=== PATIENT | male | born 1970 | race Caucasian/White ===

== ENCOUNTER 2017-06-10 10:56 | Emergency (ER) | payer OTHER ==
[2017-06-10] MEDS ORDERED: ASPIRIN 81 MG TABLET, CHEWABLE PO ONE (11:06)
--- NOTE | 2017-06-10 11:48 | ER Document Report ---
ED Medical Screen (RME) - General Chief Complaint: Chest Pain Stated Complaint: CHEST PAIN Time Seen by Provider: 06/10/17 11:47 Notes: pt with cp/sob worse with exertion since yesterday. no travel/surgeries/prev hx. no leg swelling. no hx lung/heart pathology. nml stress about one yr ago TRAVEL OUTSIDE OF THE [place] IN LAST 30 DAYS: No - Related Data Allergies/Adverse Reactions: No Known Allergies Allergy (Unverified 06/10/17 10:57) Past Medical History - Social History Frequency of alcohol use: daily beer and wine Drug Abuse: None Renal/ Medical History: Denies: Hx Peritoneal Dialysis Physical Exam - Vital signs Vitals: Temp Pulse Resp BP Pulse Ox 99.0 F 87 20 111/71 99 06/10/17 11:10 06/10/17 11:10 06/10/17 11:10 06/10/17 11:10 06/10/17 11:10 Course - Vital Signs Vital signs: Temp Pulse Resp BP Pulse Ox 99.0 F 87 20 111/71 99 06/10/17 11:10 06/10/17 11:10 06/10/17 11:10 06/10/17 11:10 06/10/17 11:10
[2017-06-10 12:42] LABS: ABSOLUTE EOSINOPHILS # (AUTO) 0.1 10^3/uL (0.0-0.6); ABSOLUTE LYMPHOCYTES (AUTO) 2.5 10^3/uL (0.5-4.7); ABSOLUTE MONOCYTES (AUTO) 0.5 10^3/uL (0.1-1.4); ABSOLUTE NEUT (AUTO) 3.6 10^3/uL (1.7-8.2); BASOPHILS % (AUTO) 0.6 % (0-2); HEMATOCRIT 42.6 % (37.9-51.0); HEMOGLOBIN 14.6 g/dL (13.5-17.0); LYMPHOCYTES % (AUTO) 37.1 % (13-45); MEAN CORPUSCULAR HEMOGLOBIN 30.4 pg (27.0-33.4); MEAN CORPUSCULAR HGB CONC 34.3 g/dL (32.0-36.0); MEAN CORPUSCULAR VOLUME 89 fl (80-97); MONOCYTES % (AUTO) 7.8 % (3-13); PLATELET COUNT 279 10^3/uL (150-450); RED BLOOD COUNT 4.82 10^6/uL (4.35-5.55); RED CELL DISTRIBUTION WIDTH 13.1 % (11.5-14.0); SEGMENTED NEUTROPHILS % (AUTO) 53.5 % (42-78); TOTAL CELLS COUNTED % (AUTO) 100 %; WHITE BLOOD COUNT 6.8 10^3/uL (4.0-10.5)
[2017-06-10 12:45] LABS: VENOUS BLOOD BASE EXCESS 3.2 mmol/L; VENOUS BLOOD HCO3 30.4 mmol/L (20-32); VENOUS BLOOD PH 7.35 (7.30-7.42)
[2017-06-10 12:46] LABS: INTERNATIONAL RATION (INR) 0.92
[2017-06-10 12:47] LABS: PARTIAL THROMBOPLASTIN TIME 28.6 SEC (23.5-35.8)
[2017-06-10 13:04] LABS: ALANINE AMINOTRANSFERASE 35 U/L (21-72); ALBUMIN 4.4 g/dL (3.5-5.0); ALKALINE PHOSPHATASE 66 U/L (38-126); ANION GAP 13 (5-19); ASPARTATE AMINO TRANSFERASE 24 U/L (17-59); BILIRUBIN,DIRECT 0.4 mg/dL (0.0-0.4); BILIRUBIN,TOTAL 0.5 mg/dL (0.2-1.3); BLOOD UREA NITROGEN 12 mg/dL (7-20); CALCIUM 9.5 mg/dL (8.4-10.2); CARBON DIOXIDE 26 mmol/L (22-30); CHLORIDE 102 mmol/L (98-107); CREATINE KINASE 129 U/L (55-170); GLUCOSE 73 mg/dL (75-110); LIPASE 259.6 U/L (23-300); MAGNESIUM 1.8 mg/dL (1.6-2.3); POTASSIUM 4.4 mmol/L (3.6-5.0); SODIUM 140.6 mmol/L (137-145); TOTAL PROTEIN 6.6 g/dL (6.3-8.2)
[2017-06-10 13:16] LABS: CREATINE KINASE MB 4.25 ng/mL (<4.55)
[2017-06-10 13:19] LABS: TROPONIN I 0.552 ng/mL
--- NOTE | 2017-06-10 13:32 | EKG REPORT ---
SEVERITY:- NORMAL ECG - SINUS RHYTHM : Confirmed by: Matty Coreas MD 10-Jun-2017 13:31:02
--- NOTE | 2017-06-10 13:48 | RADIOLOGY REPORT (SQ) ---
EXAM DESCRIPTION: CTA CHEST COMPLETED DATE/TIME: 06/10/2017 1:36 pm REASON FOR STUDY: hypoxia in pcp office l cp COMPARISON: None. TECHNIQUE: CT scan of the chest performed using helical scanning technique with dynamic intravenous contrast injection. Images reviewed with lung, soft tissue and bone windows. Reconstructed coronal and sagittal MPR images reviewed. Additional 3 dimensional post-processing performed to develop Maximal Intensity Projection images (HI P). All images stored on PACS. All CT scanners at this facility use dose modulation, iterative reconstruction, and/or weight based d osing when appropriate to reduce radiation dose to as low as reasonably achievable (ALARA). [facility]: Dose Right [facility]: CareDose [facility]: Dose Right [facility]: Teradose 4D [facility]: [employer] CONTRAST TYPE AND DOSE: contrast/concentration: Isovue 370.00 mg/ml; Total Contrast Delivered: 82.0 ml; Total Saline Delivered: 82.1 ml Contrast bolus optimized for the pulmonary arteries. Not diagnostic for the aorta. RENAL FUNCTION: Creatinine 1 RADIATION DOSE: CT Rad equipment meets quality standard of care and radiation dose reduction techniq ues were employed. CTDIvol: 16.5 - 31.5 mGy. DLP: 1223 mGy-cm. . LIMITATIONS: None. FINDINGS: LUNGS AND PLEURA: Abnormal air space density in the inferior aspect of the right upper lob e posteriorly consistent with mild pneumonia. Remainder lungs are clear. No effusions. AORTA AND GREAT VESSELS: No aneurysm. Contrast bolus not optimized for the aorta. HEART: No pericardial effusion. No significant coronary artery calcifications. PULMONARY ARTERIES: No emboli visualized in the main pulmonary arteries or the segmental branches. HILAR AND MEDIASTINAL STRUCTURES: No identified masses or abnormal nodes. HARDWARE: None in the chest. UPPER ABDOMEN: No significant findings. Limited exam. THYROID AND OTHER SOFT TISSUES: No masses. No adenopathy. BONES: No acute or significant finding. 3D MIPS: Confirm above findings. OTHER: No other significant finding. IMPRESSION: 1. No evidence of pulmonary embolus. 2. Mild right upper lobe pneumonia. COMMENT: Quality ID # [id number]: Final reports with documentation of one or more dose reduction techniques (e.g., Automated exposure control, adjustment of the mA and/or kV according to patient size, use of iterative reconstruction technique) TECHNICAL DOCUMENTATION: JOB ID: [id number]- All Rights Reserved
[2017-06-10] MEDS ORDERED: NORMAL SALINE 1000 ML 1,000 ML IV ONE ×2 (14:06)
[2017-06-10] MEDS ORDERED: ATORVASTATIN CALCIUM 40 MG TABLET PO ONE (14:19)
[2017-06-10] MEDS ORDERED: ENOXAPARIN SODIUM INJ 120 MG/0.8 ML DISP.SYRIN SUBCUT SCH (14:30)
--- NOTE | 2017-06-10 16:11 | ER Document Report ---
ED General - General Chief Complaint: Chest Pain Stated Complaint: CHEST PAIN Time Seen by Provider: 06/10/17 11:47 TRAVEL OUTSIDE OF THE [place] IN LAST 30 DAYS: No - HPI Patient complains to provider of: Chest pain shortness of breath hypoxia Notes: Patient coming in for evaluation of chest pain shortness of breath and hypoxia. Patient states symptoms ongoing for the last few weeks. States mostly shortness of breath and chest pain whenever he is ambulating working. Patient has a history of hyperlipidemia and hypertension. Patient was seen in his PCPs office and sent to the ER due to a hypoxic reading on pulse oximetry while ambulating in the patient's PCPs office. I did receive a phone call from PCP states had a stress test that was negative approximately 1 year ago possibility of some slight areas of reversible ischemia at that time. By my evaluation patient resting comfortably. States chest pain mostly on the left side sometimes does go into his back. Patient denies any fevers chills nausea vomiting diarrhea denies smoking denies any recent travel. Patient currently chest pain-free - Related Data Allergies/Adverse Reactions: No Known Allergies Allergy (Unverified 06/10/17 10:57) Past Medical History - Social History Smoking Status: Never Smoker Frequency of alcohol use: daily beer and wine Drug Abuse: None Family History: Reviewed & Not Pertinent Patient has suicidal ideation: No Patient has homicidal ideation: No Renal/ Medical History: Denies: Hx Peritoneal Dialysis Review of Systems - Review of Systems Constitutional: No symptoms reported EENT: No symptoms reported Cardiovascular: Chest pain, Dyspnea, Syncope Respiratory: No symptoms reported Gastrointestinal: No symptoms reported Genitourinary: No symptoms reported Male Genitourinary: No symptoms reported Musculoskeletal: No symptoms reported Skin: No symptoms reported Hematologic/Lymphatic: No symptoms reported Neurological/Psychological: No symptoms reported -: Yes All other systems reviewed and negative Physical Exam - Vital signs Vitals: Temp Pulse Resp BP Pulse Ox 99.0 F 87 20 111/71 99 06/10/17 11:10 06/10/17 11:10 06/10/17 11:10 06/10/17 11:10 06/10/17 11:10 Interpretation: Normal - General General appearance: Appears well, Alert - HEENT Head: Normocephalic, Atraumatic Eyes: Normal Pupils: PERRL - Respiratory Respiratory status: No respiratory distress Chest status: Nontender Breath sounds: Normal Chest palpation: Normal - Cardiovascular Rhythm: Regular Heart sounds: Normal auscultation Murmur: No - Abdominal Inspection: Normal, Obese Distension: No distension Bowel sounds: Normal Tenderness: Nontender Organomegaly: No organomegaly - Back Back: Normal, Nontender - Extremities General upper extremity: Normal inspection, Nontender, Normal color, Normal ROM , Normal temperature General lower extremity: Normal inspection, Nontender, Normal color, Normal ROM , Normal temperature, Normal weight bearing. No: Toyin's sign - Neurological Neuro grossly intact: Yes Cognition: Normal Orientation: AAOx4 [place] Coma Scale Eye Opening: Spontaneous [place] Coma Scale Verbal: Oriented [place] Coma Scale Motor: Obeys Commands [place] Coma Scale Total: 15 Speech: Normal Motor strength normal: LUE, RUE, LLE, RLE Sensory: Normal - Psychological Associated symptoms: Normal affect, Normal mood - Skin Skin Temperature: Warm Skin Moisture: Dry Skin Color: Normal Course - Re-evaluation Re-evalutation: 06/10/17 16:06 Patient seen in for evaluation of hypoxia chest pain with exertion. PCP request and CTA which was negative. This revealed possible right-sided pneumonia however patient has no fevers chills nausea vomiting has no cough. Has no elevation of white count do not suspect the patient has pneumonia at this time. Initial EKG showed normal sinus rhythm. Troponin was elevated at 0.5. He did repeat the patient's EKG was now shows T-wave inversions V2-V4. Concern for underlying in STEMI with patient exertional chest pain .. angina. I initially did call [facility] spoke to hospitalist Dr. Tovar who requested I speak to cardiology. Discussed with water purifier business area director Dr. Godoy unfortunate this time [facility] is at capacity and unable have a bed available until next [address] Godoy did agree to schedule the patient for cath in the morning. Requesting a heparin drip. I did also speak with Dr. Meredith of [facility]. Did set patient's transfer. Dr. Meredith agrees with [facility] at this time. Did give the patient his atorvastatin and also patient did receive aspirin here. At this time patient's blood pressure has been ranging between 90-100 systolically. Did give the patient a fluid bolus. She did take his blood pressure medication earlier in the morning. Does have a slight elevation in his BNP more likely related to underlying in STEMI. Currently patient has no issues no chest pain. Currently waiting on transport to [facility]. - Vital Signs Vital signs: Temp Pulse Resp BP Pulse Ox 99.0 F 87 24 H 106/65 94 06/10/17 11:10 06/10/17 11:10 06/10/17 21:27 06/10/17 21:27 06/10/17 21:27 - Laboratory Result Diagrams: 06/10/17 12:18 06/10/17 12:18 Laboratory results interpreted by me: 06/10/17 06/10/17 12:18 12:18 Glucose 73 L NT-Pro-B Natriuret Pep 1280 H Discharge - Discharge Clinical Impression: NSTEMI (non-ST elevated myocardial infarction) Condition: Stable Disposition: [facility] Referrals: CARINA RAMIRES MD [Primary Care Provider] - Follow up as needed
--- NOTE | 2017-06-10 18:09 | EKG REPORT ---
SEVERITY:- ABNORMAL ECG - SINUS RHYTHM ABNORMAL T, CONSIDER ISCHEMIA, ANT-LAT LEADS BORDERLINE PROLONGED QT INTERVAL : Confirmed by: Matty Coreas MD 10-Jun-2017 18:09:07
[2017-06-10 20:02] VITALS: BP 106/65
--- NOTE | 2017-06-10 21:35 | ER Document Report ---
Doctor's Note Notes: 06/10/17 21:35 Patient reevaluated, he is stable at this time, transfer is here to take the patient, he has no complaints
== END 2017-06-10 21:45 | disposition short-term general hospital (02) ==
LOC: ER 10:56
DX: R07.9 Chest pain, unspecified (principal); R06.02 Shortness of breath; R09.02 Hypoxemia; I10 Essential (primary) hypertension; E78.5 Hyperlipidemia, unspecified
CPT/HCPCS: 93005; 99285; 96372; 96360; 96361; 36415; 82553; 82550; 83690; 83735; 85025; 85610; 85730; 80053; 84484; 82803; 83880; 71275; 93010; J1650; J7030

== ENCOUNTER 2017-07-20 13:22 | Emergency (ER) | payer OTHER ==
[2017-07-20] MEDS ORDERED: ASPIRIN 81 MG TABLET, CHEWABLE PO ONE (14:07)
--- NOTE | 2017-07-20 14:09 | ER Document Report ---
ED Cardiac - General Chief Complaint: Chest Pain Stated Complaint: CHEST PAIN Time Seen by Provider: 07/20/17 13:41 Notes: 46-year-old male to the emergency department via EMS for evaluation of chest pain. Patient was seen here approximately 5 weeks ago. Diagnosed with a non- ST segment elevation [place]. Transferred to [facility] in [place]. There he had a cardiac catheterization done which showed no obvious blockage. Followed by energy conservation specialist here in town, Dr. Chapman. Patient states that over the last couple days he has had vomiting and diarrhea. Today he developed chest pain and shortness of breath. Has any fever, chills or sweats at this time. States that he took a nitro 2 at home and received another one in route. Chest pain is improved at this time. TRAVEL OUTSIDE OF THE [place] IN LAST 30 DAYS: No - HPI Patient complains to provider of: Chest pain - Related Data Allergies/Adverse Reactions: No Known Allergies Allergy (Unverified 06/10/17 10:57) Past Medical History - General Information source: Patient - Social History Smoking Status: Never Smoker Frequency of alcohol use: None Drug Abuse: None Lives with: Spouse/Significant other Family History: Reviewed & Not Pertinent - Past Medical History Cardiac Medical History: Reports: Hx Hypertension Pulmonary Medical History: Reports: None EENT Medical History: Reports: None Neurological Medical History: Reports: None Endocrine Medical History: Reports: None Renal/ Medical History: Denies: Hx Peritoneal Dialysis Malignancy Medical History: Reports None GI Medical History: Reports: None Musculoskeltal Medical History: Reports None Skin Medical History: Reports None Psychiatric Medical History: Reports: None Review of Systems - Review of Systems Constitutional: Weakness. denies: Fever, Malaise EENT: No symptoms reported Cardiovascular: Chest pain Respiratory: Short of breath. denies: Cough, Hurts to breathe, Wheezing Gastrointestinal: Diarrhea, Nausea, Vomiting Genitourinary: No symptoms reported Male Genitourinary: No symptoms reported Musculoskeletal: No symptoms reported Skin: No symptoms reported Hematologic/Lymphatic: No symptoms reported Neurological/Psychological: No symptoms reported Physical Exam - Vital signs Vitals: Temp Resp Pulse Ox 97.5 F 22 H 96 07/20/17 13:39 07/20/17 13:39 07/20/17 13:39 Interpretation: Normal - General General appearance: Appears well, Alert - HEENT Head: Normocephalic, Atraumatic Eyes: Normal Pupils: PERRL - Respiratory Respiratory status: No respiratory distress Chest status: Nontender Breath sounds: Normal Chest palpation: Normal - Cardiovascular Rhythm: Regular Heart sounds: Normal auscultation Murmur: Yes - Patient has a blowing systolic murmur Systolic murmur grade 1-6: 5 Gallop: None auscultated. No: S3 gallop, S4 gallop Notes: No obvious peripheral edema - Abdominal Inspection: Normal Distension: No distension Bowel sounds: Normal Tenderness: Nontender Organomegaly: No organomegaly - Back Back: Normal, Nontender - Extremities General upper extremity: Normal inspection, Nontender, Normal color, Normal ROM , Normal temperature General lower extremity: Normal inspection, Nontender, Normal color, Normal ROM , Normal temperature, Normal weight bearing. No: Toyin's sign - Neurological Neuro grossly intact: Yes Cognition: Normal Orientation: AAOx4 [place] Coma Scale Eye Opening: Spontaneous [place] Coma Scale Verbal: Oriented [place] Coma Scale Motor: Obeys Commands [place] Coma Scale Total: 15 Speech: Normal Motor strength normal: LUE, RUE, LLE, RLE Sensory: Normal - Psychological Associated symptoms: Normal affect, Normal mood - Skin Skin Temperature: Warm Skin Moisture: Dry Skin Color: Normal Course - Re-evaluation Re-evalutation: 07/20/17 15:11 Patient is 5 weeks post non-STEMI. Significant murmur. Will order echocardiogram. Consulted with energy conservation specialist. Initial workup is unremarkable at this time. 07/20/17 19:30 Laboratory 07/20/17 07/20/17 07/20/17 13:46 13:46 13:46 WBC 11.1 H RBC 5.37 Hgb 16.0 Hct 47.3 MCV 88 MCH 29.8 MCHC 33.8 RDW 13.0 Plt Count 303 Seg Neutrophils % 81.4 H Lymphocytes % 12.0 L Monocytes % 5.9 Eosinophils % 0.5 Basophils % 0.2 Absolute Neutrophils 9.0 H Absolute Lymphocytes 1.3 Absolute Monocytes 0.7 Absolute Eosinophils 0.1 Absolute Basophils 0.0 Sodium 139.1 Potassium 4.8 Chloride 104 Carbon Dioxide 25 Anion Gap 10 BUN 18 Creatinine 0.94 Est GFR ( Amer) > 60 Est GFR (Non-Af Amer) > 60 Glucose 129 H Calcium 10.1 Total Bilirubin 1.0 Direct Bilirubin 0.4 Neonat Total Bilirubin Not Reportable Neonat Direct Bilirubin Not Reportable Neonat Indirect Bili Not Reportable AST 26 ALT 42 Alkaline Phosphatase 87 Creatine Kinase 153 CK-MB (CK-2) 2.65 Troponin I < 0.012 NT-Pro-B Natriuret Pep Total Protein 7.6 Albumin 4.8 07/20/17 07/20/17 13:46 18:20 WBC RBC Hgb Hct MCV MCH MCHC RDW Plt Count Seg Neutrophils % Lymphocytes % Monocytes % Eosinophils % Basophils % Absolute Neutrophils Absolute Lymphocytes Absolute Monocytes Absolute Eosinophils Absolute Basophils Sodium Potassium Chloride Carbon Dioxide Anion Gap BUN Creatinine Est GFR ( Amer) Est GFR (Non-Af Amer) Glucose Calcium Total Bilirubin Direct Bilirubin Neonat Total Bilirubin Neonat Direct Bilirubin Neonat Indirect Bili AST ALT Alkaline Phosphatase Creatine Kinase CK-MB (CK-2) Troponin I < 0.012 NT-Pro-B Natriuret Pep 48 Total Protein Albumin Chest X-Ray 07/20/17 14:07 IMPRESSION: NO ACUTE RADIOGRAPHIC FINDING IN THE CHEST. Echocardiogram fairly unremarkable according to Dr. Krueger. 07/20/17 19:30 Repeat EKG reveals T-wave inversions in lead V2, V3, V4, V5. This is very similar to previous EKG on prior visit. Consulted energy conservation specialist. Recommend starting patient on a beta-navjot and admitting for observation. states that the report from the energy conservation specialist at [facility]'s stated that his coronary arteries were extremely wide open enlarged and there was no evidence of disease that would require stenting. She states that the energy conservation specialist told her it is a good thing that he did not need a stent because his vessels were so wide open that it would have required a very large stent. Patient denies any chest pain or shortness of breath at this time. Denies any other issues. Patient wants to go home. I advised him against this. Patient wants to sign out AMA at this time. Has a energy conservation specialist as an outpatient. Has a follow-up appointment on Saturday. - Vital Signs Vital signs: Temp Pulse Resp BP Pulse Ox 97.5 F 22 H 116/75 95 07/20/17 13:39 07/20/17 18:01 07/20/17 18:01 07/20/17 18:01 - Laboratory Result Diagrams: 07/20/17 13:46 07/20/17 13:46 Laboratory results interpreted by me: 07/20/17 07/20/17 13:46 13:46 WBC 11.1 H Seg Neutrophils % 81.4 H Lymphocytes % 12.0 L Absolute Neutrophils 9.0 H Glucose 129 H - EKG Interpretation by Me EKG shows normal: Sinus rhythm, [place], Intervals, QRS Complexes, ST-T Waves Discharge - Discharge Clinical Impression: Chest pain Qualifiers: Chest pain type: unspecified Qualified Code(s): R07.9 - Chest pain, unspecified Condition: Good Disposition: HOME, SELF-CARE Instructions: Angina Episode ([facility]), Chest Pain of Unclear Cause ([facility]) Additional Instructions: You have left AGAINST MEDICAL ADVICE. This does not mean that he cannot return. In the event that you have worsening chest pain, passing out, shortness of breath or other symptoms you should return immediately. Prescriptions: Metoprolol Tartrate 25 mg PO BID 30 Days #60 tablet Referrals: CARINA RAMIRES MD [Primary Care Provider] - 07/22/17 8:00 am
[2017-07-20 14:25] LABS: ABSOLUTE EOSINOPHILS # (AUTO) 0.1 10^3/uL (0.0-0.6); ABSOLUTE LYMPHOCYTES (AUTO) 1.3 10^3/uL (0.5-4.7); ABSOLUTE MONOCYTES (AUTO) 0.7 10^3/uL (0.1-1.4); BASOPHILS % (AUTO) 0.2 % (0-2); EOSINOPHILS % (AUTO) 0.5 % (0-6); HEMATOCRIT 47.3 % (37.9-51.0); MEAN CORPUSCULAR HEMOGLOBIN 29.8 pg (27.0-33.4); MEAN CORPUSCULAR HGB CONC 33.8 g/dL (32.0-36.0); MEAN CORPUSCULAR VOLUME 88 fl (80-97); MONOCYTES % (AUTO) 5.9 % (3-13); PLATELET COUNT 303 10^3/uL (150-450); RED BLOOD COUNT 5.37 10^6/uL (4.35-5.55); SEGMENTED NEUTROPHILS % (AUTO) 81.4 % (42-78); TOTAL CELLS COUNTED % (AUTO) 100 %; WHITE BLOOD COUNT 11.1 10^3/uL (4.0-10.5)
[2017-07-20 14:34] LABS: ALANINE AMINOTRANSFERASE 42 U/L (21-72); ALBUMIN 4.8 g/dL (3.5-5.0); ALKALINE PHOSPHATASE 87 U/L (38-126); ANION GAP 10 (5-19); ASPARTATE AMINO TRANSFERASE 26 U/L (17-59); BILIRUBIN,DIRECT 0.4 mg/dL (0.0-0.4); BLOOD UREA NITROGEN 18 mg/dL (7-20); CALCIUM 10.1 mg/dL (8.4-10.2); CARBON DIOXIDE 25 mmol/L (22-30); CHLORIDE 104 mmol/L (98-107); CREATINE KINASE 153 U/L (55-170); GLUCOSE 129 mg/dL (75-110); POTASSIUM 4.8 mmol/L (3.6-5.0); SODIUM 139.1 mmol/L (137-145); TOTAL PROTEIN 7.6 g/dL (6.3-8.2)
--- NOTE | 2017-07-20 14:49 | RADIOLOGY REPORT (SQ) ---
EXAM DESCRIPTION: CHEST SINGLE VIEW COMPLETED DATE/TIME: 07/20/2017 2:38 pm REASON FOR STUDY: chest pain COMPARISON: None. EXAM PARAMETERS: NUMBER OF VIEWS: One view. TECHNIQUE: Single frontal radiographic view of the chest acquired. RADIATION DOSE: NA LIMITATIONS: None. FINDINGS: LUNGS AND PLEURA: No opacities, masses or pneumothorax. No pleural effusion. MEDIASTINUM AND HILAR STRUCTURES: No masses. Contour normal. HEART AND VASCULAR STRUCTURES: Heart normal in size. Normal vasculature. BONES: No acute findings. HARDWARE: None in the chest. OTHER: No other significant finding. IMPRESSION: NO ACUTE RADIOGRAPHIC FINDING IN THE CHEST. TECHNICAL DOCUMENTATION: JOB ID: [id number] [employer]- All Rights Reserved Reading location - IP/workstation name: [email or web address]
[2017-07-20 14:52] LABS: CREATINE KINASE MB 2.65 ng/mL (<4.55)
[2017-07-20 14:53] LABS: TROPONIN I < 0.012 ng/mL
--- NOTE | 2017-07-20 17:22 | EKG REPORT ---
SEVERITY:- ABNORMAL ECG - SINUS RHYTHM BORDERLINE T ABNORMALITIES, ANTERIOR LEADS EARLY TRANSITION, SUSPECT OLD TRUE POST LA : Confirmed by: Matty Coreas MD 20-Jul-2017 17:21:45
[2017-07-20 18:25] VITALS: BP 116/75
--- NOTE | 2017-07-20 18:58 | XCELERA REPORT ---
[address] [address] Transthoracic Echocardiogram Report Name: BENJA FERNANDEZ Age: 46 yrs Gender: Male : 1970 Patient Status: Emergency Patient Location: ER Study Date: 07/20/2017 03:52 PM Height: 68 in Weight: 233 lb BSA: 2.2 m2 Procedure: A complete two-dimensional transthoracic echocardiogram was performed (2D, M-mode, spectral and color flow Doppler). The study was technically difficult with many images being suboptimal in quality. Reason For Study: cp, new murmur, 5 weeks post [place] Ordering Physician: JUANITA SPARKS Performed By: Zakiya Romero Interpretation Summary The left ventricular ejection fraction is normal. There is mild concentric left ventricular hypertrophy. The left ventricle is grossly normal size. Doppler measurements suggest pseudonormalized left ventricular relaxation, which is associated with grade II/IV or mild to moderate diastolic dysfunction Not all wall segments were well visualized. Wall motion cannot be accurately commented on, but no definite regional wall motion abnormalities noted. The right ventricle is mildly dilated. The right ventricular systolic function is normal. The right atrium is normal in size The left atrial size is normal. There is a trace amount of mitral regurgitation There is no mitral valve stenosis. There is no aortic valve stenosis There is mild LVOT obstruction. There is a trace amount of aortic regurgitation LVOT gradient of 30-35 mmHg There is a trace or physiologic amount of tricuspid regurgitation Tricuspid regurgitation jet envelope not well defined to measure RV systolic pressure accurately. The pulmonic valve is not well visualized. The aortic root is not well visualized but is probably normal size. The inferior vena cava was not visualized MMode/2D Measurements & Calculations RVDd: 3.0 cm LVIDd: 4.5 cm FS: 40.6 % Ao root diam: 3.0 cm IVSd: 0.93 cm LVIDs: 2.7 cm EDV(Teich): 92.3 ml LVPWd: 0.92 cm ESV(Teich): 26.3 ml Ao root area: 7.1 cm2 EF(Teich): 71.5 % LA dimension: 3.2 cm Doppler Measurements & Calculations MV E max ann-marie: MV P1/2t max ann-marie: Ao V2 max: LV V1 max P.3 cm/sec 93.8 cm/sec 255.2 cm/sec 16.9 mmHg MV A max ann-marie: MV P1/2t: 72.7 msec Ao max PG: LV V1 max: 92.8 cm/sec 26.6 mmHg 205.5 cm/sec MV E/A: 1.0 MVA(P1/2t): 3.0 cm2 MV dec slope: 377.9 cm/sec2 PA V2 max: 102.2 cm/sec PA max P.2 mmHg Left Ventricle The left ventricle is grossly normal size. There is mild concentric left ventricular hypertrophy. The left ventricular ejection fraction is normal. Doppler measurements suggest pseudonormalized left ventricular relaxation, which is associated with grade II/IV or mild to moderate diastolic dysfunction. Not all wall segments were well visualized. Wall motion cannot be accurately commented on, but no definite regional wall motion abnormalities noted. Right Ventricle The right ventricle is mildly dilated. There is normal right ventricular wall thickness. The right ventricular systolic function is normal. Atria The right atrium is normal in size. The left atrial size is normal. Interarterial septum not well visualized and not well dopplered. Cannot comment on ASD/PFO presence. Mitral Valve The mitral valve is grossly normal. There is no mitral valve stenosis. There is a trace amount of mitral regurgitation. Aortic Valve The aortic valve is grossly normal. There is no aortic valve stenosis. There is mild LVOT obstruction. LVOT gradient of 30-35 mmHg. There is a trace amount of aortic regurgitation. Tricuspid Valve The tricuspid valve is not well visualized secondary to technical limitations. There is no tricuspid stenosis. There is a trace or physiologic amount of tricuspid regurgitation. Tricuspid regurgitation jet envelope not well defined to measure RV systolic pressure accurately. Pulmonic Valve The pulmonic valve is not well visualized. Great Vessels The aortic root is not well visualized but is probably normal size. The inferior vena cava was not visualized. Effusions There is no pericardial effusion. : JUANITA SPARKS > Alysia Krueger
[2017-07-20] MEDS ORDERED: METOPROLOL TARTRATE 25 MG TABLET PO ONE (19:30)
--- NOTE | 2017-07-20 22:04 | EKG REPORT ---
SEVERITY:- ABNORMAL ECG - SINUS RHYTHM ABNORMAL T, CONSIDER ISCHEMIA, ANTERIOR LEADS PROLONGED QT INTERVAL : Confirmed by: Matty Coreas MD 20-Jul-2017 22:03:18
== END 2017-07-20 19:40 | disposition home or self-care (01) ==
LOC: ER 13:22
DX: R07.9 Chest pain, unspecified (principal); R01.1 Cardiac murmur, unspecified; R53.1 Weakness; R11.2 Nausea with vomiting, unspecified; R19.7 Diarrhea, unspecified; R06.02 Shortness of breath; I25.2 Old myocardial infarction; I10 Essential (primary) hypertension
CPT/HCPCS: 36415; 71045; 80053; 82550; 82553; 83880; 84484; 85025; 93005; 93010; 93306; 99285